=== PATIENT | female | born 1990 | race Caucasian/White ===

== ENCOUNTER 2016-05-18 15:24 | Emergency (ER) | payer BC ==
[~2016-05-18] VITALS: Ht 170.2 cm; Wt 64.0 kg
[~2016-05-18 15:24] MED LIST: MEDLIST
[2016-05-18 15:45] VITALS: TEMP 36.9; Ht 170.2 cm; Wt 64.0 kg
[2016-05-18] MEDS ORDERED: KETOROLAC TROMETHAMINE 30 MG/ML VIAL IV STA (17:11)
[2016-05-18 17:37] LABS: BASO % 0.3 %; BASO ABS # 0.02 K/uL (0-0.2); COMPLETE YES; EOS % 1.3 %; HEMATOCRIT 39.3 % (37-47); IG% 0.1 %; LYMPH ABS # 2.55 K/uL (1.2-3.4); MEAN CELL VOLUME 89.1 fL (80-100); MEAN CORPUSCULAR HGB CONC 35.9 g/dl (32-36); MEAN PLATELET VOLUME 8.8 fL (7.4-10.4); MONO % 6.8 %; NEUT % 54.5 %; PLATELET COUNT 215 K/uL (130-400); RED BLOOD COUNT 4.41 M/uL (4.2-5.4)
[2016-05-18 17:51] LABS: POINT OF CARE TROPONIN I 0.02 ng/ml (0-0.045)
[2016-05-18 17:59] LABS: ALB/GLOB RATIO 1.4 (0.9-2); BUN/CREATININE RATIO 15.4 (10-20); CREATININE 0.76 mg/dl (0.60-1.20); POTASSIUM 3.6 mmol/L (3.5-5.1)
--- NOTE | 2016-05-18 18:23 | DIAGNOSTIC IMAGING REPORT ---
CHEST 2 VIEWS ROUTINE HISTORY: Atypical CHEST PAIN COMPARISON: None. FINDINGS: The lungs are clear. Cardiac silhouette is normal in size. No pleural effusions. No pneumothorax. IMPRESSION: No acute process. Electronically signed by: Cameron De Jesus M.D. 05/18/2016 6:22 PM Dictated Date/Time: 05/18/2016 6:20 PM
--- NOTE | 2016-05-18 19:02 | EMERGENCY ROOM VISIT NOTE ---
History First contact with patient: 16:59 Chief Complaint: CHEST PAIN Stated Complaint: CHEST PAIN History of Present Illness Patient is an otherwise healthy 25-year-old white female who presents to the emergency department for evaluation of chest pain that started today. She states that she noticed it around 0800 (about 8 hours ago) when she was at work. She described it as a sharp pain in the midsternal area, slightly more to the right. It was constant. She states that she was at rest when it began. She did not try taking any medications, nor perform any interventions for her discomfort. She states that he got a little bit worse around lunch time, when she noted increased pain and a sensation that her chest was tight. At its worst she would've rated it an 8/10, presently she rates it a 2/10. She states that it was worse with some movements, and taking a deep breath. She states that when it was very severe she felt it through to her back slightly. She denies any recent cold or upper respiratory symptoms, call in no cough, wheezing , shortness of breath or dyspnea on exertion. She denies any associated nausea or indigestion. No headache, lightheadedness or dizziness. She reports that she has been experiencing chest pain after exercising for about a year but has never had this evaluated. She is not presently on oral contraceptives, and receives Depo-Provera injections. She is not a smoker. She has not traveled anywhere recently. No calf or leg pain or swelling. She denies a family history of early cardiac . The patient left work early and went to [employer]. She had an EKG and a chest x-ray which were apparently unremarkable. She was given aspirin 324 mg chewable. They were apparently concerned about a possible "blood clot" and directed her to the emergency department for further care and evaluation. Review of Systems Review of systems as per HPI. All other systems reviewed were negative. 10 systems reviewed. Past Medical/Surgical History Medical Problems: (1) No Known Active Medical Problems Surgical Problems: (1) H/O wisdom tooth extraction Electronic medical records are reviewed and summarized as above/below. See Problem List. Social History Smoking Status: Never Smoker Housing Status: lives with roommate Occupation Status: employed Current/Historical Medications Scheduled Control Pills ( Control Pills), 1 TAB PO DAILY Allergies Coded Allergies: No Known Allergies (Unverified , 10/01/09) Physical Exam Vital Signs Date Time Temp Pulse Resp B/P Pulse Ox O2 Delivery O2 Flow Rate FiO2 05/18/16 20:06 88 16 106/61 98 05/18/16 18:40 Room Air 05/18/16 18:34 81 20 107/69 100 Room Air 05/18/16 15:45 36.9 83 17 117/73 96 Room Air Pain Rating (0-10): 0 Physical Exam CONSTITUTIONAL: Patient is a well-appearing 25-year-old white female who is awake and alert and in no acute distress. EYES: Pupils equal, round, reactive to light and accommodation. EOMs intact without nystagmus. Sclera are anicteric. ENT: Tympanic membranes intact, with normal landmarks. External canals are clear. Oral and nasopharynx are clear. Mucous membranes are moist, no lesions , tongue and gums appear normal. NECK: No bruits auscultated. Supple without lymphadenopathy. No thyromegaly. No meningeal signs. Full active range of motion without discomfort. CARDIOVASCULAR: Regular rate and rhythm, with normal S1 and S2, no murmur or gallop or rub is heard. No carotid bruits auscultated. No JVD. Peripheral pulses easy to palpable. RESPIRATORY: Breath sounds equal and clear to auscultation without wheezes, rales, or rhonchi heard. Full and equal chest expansion without accessory muscle use or retractions. The patient does have some reproducible discomfort to palpation in the right costochondral area. GI: Bowel sounds are present. Abdomen is soft, nontender, nondistended. No organomegaly. No pulsatile masses. No guarding or rebound. MUSCULOSKELETAL: Full range of motion of extremities x 4 with good strength. No cyanosis, edema, joint tenderness or swelling. No deformity. INTEGUMENTARY: No lesions or rash, normal skin turgor. NEUROLOGICAL: Alert, oriented, and cooperative. Cranial nerves, sensation and strength grossly intact. Pupils round, equal, and react to light, EOMs are full. LYMPH: No lymphadenopathy. Medical Decision & Procedures ER Provider Diagnostic Interpretation: CHEST 2 VIEWS ROUTINE HISTORY: Atypical CHEST PAIN COMPARISON: None. FINDINGS: The lungs are clear. Cardiac silhouette is normal in size. No pleural effusions. No pneumothorax. IMPRESSION: No acute process. Laboratory Results 05/18/16 17:20 Red Blood Count 4.41, Mean Corpuscular Volume 89.1, Mean Corpuscular Hemoglobin 32.0, Mean Corpuscular Hemoglobin Concent 35.9, Mean Platelet Volume 8.8, Neutrophils (%) (Auto) 54.5, Lymphocytes (%) (Auto) 37.0, Monocytes (%) (Auto) 6.8, Eosinophils (%) (Auto) 1.3, Basophils (%) (Auto) 0.3, Neutrophils # (Auto) 3.76, Lymphocytes # (Auto) 2.55, Monocytes # (Auto) 0.47, Eosinophils # (Auto) 0.09, Basophils # (Auto) 0.02 05/18/16 17:20 Test 05/18/16 17:20 05/18/16 17:34 05/18/16 18:37 White Blood Count 6.90 K/uL (4.8-10.8) Red Blood Count 4.41 M/uL (4.2-5.4) Hemoglobin 14.1 g/dL (12.0-16.0) Hematocrit 39.3 % (37-47) Mean Corpuscular Volume 89.1 fL (80-100) Mean Corpuscular Hemoglobin 32.0 pg (25-34) Mean Corpuscular Hemoglobin Concent 35.9 g/dl (32-36) Platelet Count 215 K/uL (130-400) Mean Platelet Volume 8.8 fL (7.4-10.4) Neutrophils (%) (Auto) 54.5 % Lymphocytes (%) (Auto) 37.0 % Monocytes (%) (Auto) 6.8 % Eosinophils (%) (Auto) 1.3 % Basophils (%) (Auto) 0.3 % Neutrophils # (Auto) 3.76 K/uL (1.4-6.5) Lymphocytes # (Auto) 2.55 K/uL (1.2-3.4) Monocytes # (Auto) 0.47 K/uL (0.11-0.59) Eosinophils # (Auto) 0.09 K/uL (0-0.5) Basophils # (Auto) 0.02 K/uL (0-0.2) RDW Standard Deviation 37.8 fL (36.4-46.3) RDW Coefficient of Variation 11.6 % (11.5-14.5) Immature Granulocyte % (Auto) 0.1 % Immature Granulocyte # (Auto) 0.01 K/uL (0.00-0.02) Anion Gap 9.0 mmol/L (3-11) Est Creatinine Clear Calc Drug Dose 112.0 ml/min Estimated GFR () 128.1 Estimated GFR (Non- 110.6 BUN/Creatinine Ratio 15.4 (10-20) Calcium Level 9.0 mg/dl (8.5-10.1) Total Bilirubin 0.4 mg/dl (0.2-1) Aspartate Amino Transf (AST/SGOT) 14 U/L (15-37) Alanine Aminotransferase (ALT/SGPT) 23 U/L (12-78) Alkaline Phosphatase 62 U/L (45-117) Total Protein 7.4 gm/dl (6.4-8.2) Albumin 4.3 gm/dl (3.4-5.0) Globulin 3.1 gm/dl (2.5-4.0) Albumin/Globulin Ratio 1.4 (0.9-2) Lipase 198 U/L (73-393) Bedside D-Dimer 240 ng/mlFEU (0-450) Bedside Troponin I 0.020 ng/ml (0-0.045) Urine Test NEG (NEG) ECG Indication: chest pain Rate (beats per minute): 72 Rhythm: normal sinus Findings: no acute ischemic change, no ectopy Comparison ECG Date: no prior available ED Course The patient was seen and evaluated as above. Old records were reviewed. IV access was obtained and laboratory studies were collected. She was medicated with Toradol 30 mg IV. Urine dip and test were negative. CBC, CMP, lipase, [id number] d-dimer and troponin were drawn. EKG was obtained and was unremarkable. Chest x-ray was clear. Laboratory studies did not demonstrate any leukocytosis, anemia, electrolyte or liver function abnormalities. Vumdy-bj-gdle troponin is negative 1 with symptoms greater than 8 hours. Lipase is not elevated. [id number] d-dimer will was within normal limits, therefore, further workup for PE was not pursued. The patient was reassessed and made aware of the results of her laboratory and diagnostic imaging studies. She has some reproducible right chest wall discomfort to palpation and I suspect her pain is musculoskeletal in nature. Differential diagnosis includes acute myocardial infarction, acute coronary syndrome, myocarditis, pericarditis, pulmonary embolism, pneumonia, pneumothorax , cardiomyopathy, anemia, musculoskeletal, anxiety, costochondritis, shingles, among others. She was encouraged to use ibuprofen for discomfort and to follow- up with her primary care provider if her symptoms are not improving. The patient rated her discomfort a 0/10 at discharge. Medical Decision See ED Course. Impression Primary Impression: Chest wall pain Departure Information Referrals No Doctor, Assigned (PCP) Patient Instructions A Signature Page, [facility] [employer] Additional Instructions Ibuprofen(Motrin, Advil) may be used for fever or pain. Use 600mg every six hours as needed. Take with food. Avoid using more than 2400mg in a 24 hour period. Do not use 2400mg per day for more than three consecutive days without physician direction. Prolonged inappropriate use can lead to stomach upset or ulcers. (AND/OR) Acetaminophen(Tylenol) may be used for fever or pain. Use 1000mg every six hours as needed. Avoid using more than 3000mg in a 24 hour period. Rest and drink plenty of fluids as tolerated. Continue current medications. Avoid strenuous activities and anything that worsens your pain. Resume normal activities once your symptoms resolve. Return to the ER immediately for worsening or persistent chest pain, abdominal pain, vomiting, fevers, chest pains, difficulty breathing, worsening of your condition, or as needed. Follow up with your primary physician in 2-3 days for a recheck of your current condition.
[2016-05-18 20:06] VITALS: BP 106/61; PULSE 88; O2SAT 98
[2016-05-18] MEDS ORDERED: BCPILLS PO (20:59)
== END 2016-05-18 19:39 | disposition home or self-care (01) ==
LOC: C.EDB 15:28 → C.EDC 19:39
DX: R07.89 Other chest pain (principal); Z79.3 Long term (current) use of hormonal contraceptives